=== PATIENT | female | born 1980 | race Caucasian/White ===

== ENCOUNTER 2017-01-14 12:15 | Emergency (ER) | payer SELFPAY ==
[2017-01-14 12:19] VITALS: BP 127/82
[2017-01-14] MEDS ORDERED: cefTRIAXone 1 GM Vial IVPUSH ONE (12:50)
[2017-01-14] MEDS ORDERED: Sodium Chloride 0.9% 1,000 ML IV ONE (12:56)
[2017-01-14] MEDS ORDERED: Iopamidol 612 MG/ML 100 ML Bottle IVPUSH ONE (12:58)
--- NOTE | 2017-01-14 13:02 | EDM.PDOC ---
ED HPI GENERAL MEDICAL PROBLEM - General Chief Complaint: Skin Complaint Stated Complaint: abcess Time Seen by Provider: 01/14/17 12:47 Source of Information: Reports: Patient History Limitations: Reports: No Limitations - History of Present Illness INITIAL COMMENTS - FREE TEXT/NARRATIVE: This patient is a 36 year old female that presents to the ER. Patient reports that for the past 3 days she has had an abscess to the middle/right groin area. She reports that she was seen yesterday, attempted draining, but no success. She reports today the redness around the area has now become a little worse and now has some mild swelling and pain to her right vaginal area. Patient reports she got abx injectino yesterday and was prescribed clindamycin that she just too for the first time just before coming to the ER. Patient denies headache, dizziness, n, v, d, f, cp, soa, abd pain, back pain, urinary/bowel changes, rashes. Duration: Day(s): (3) Location: Reports: Other (groin) Severity: Moderate Improves with: Reports: None Worsens with: Reports: None Associated Symptoms: Denies: Confusion, Chest Pain, Cough, cough w sputum, Diaphoresis, Fever/Chills, Headaches, Loss of Appetite, Malaise, Nausea/Vomiting , Rash, Seizure, Shortness of Breath, Syncope, Weakness Right Groin Pain Score (Numeric/FACES): 6 - Related Data Allergies Allergy/AdvReac Type Severity Reaction Status Date / Time morphine Allergy Vomiting Verified 01/14/17 12:15 Penicillins Allergy Vomiting Verified 01/14/17 12:15 Home Meds: Home Meds LORazepam [LORazepam] 0.5 mg PO BID PRN 12/23/16 [History] Omeprazole 20 mg PO DAILY PRN 12/23/16 [History] Clindamycin HCl 300 mg PO QID 01/14/17 [History] Past Medical History Gastrointestinal History: Reports: Other (See Below) Other Gastrointestinal History: Pt reports all internal organs are reversed from normal Genitourinary History: Reports: Other (See Below) Other Genitourinary History: hx hosp for "kidney infection" - Past Surgical History Dermatological Surgical History: Reports: Other (See Below) Social & Family History - Tobacco Use Smoking Status *Q: Current Every Day Smoker Years of Tobacco use: 5 Packs/Tins Daily: 1 - Recreational Drug Use Recreational Drug Use: No ED ROS GENERAL - Review of Systems Review Of Systems: See Below Constitutional: Reports: No Symptoms HEENT: Reports: No Symptoms Respiratory: Reports: No Symptoms Cardiovascular: Reports: No Symptoms Endocrine: Reports: No Symptoms GI/Abdominal: Reports: No Symptoms : Reports: Other (right vaginal area painful, swelling mild. ) Musculoskeletal: Reports: No Symptoms Skin: Reports: Lumps (large asbcess to right middle grion area. redness, swelling. ) Neurological: Reports: No Symptoms Psychiatric: Reports: No Symptoms Hematologic/Lymphatic: Reports: No Symptoms Immunologic: Reports: No Symptoms ED EXAM, SKIN/RASH Exam: See Below Exam Limited By: No Limitations General Appearance: Alert, WD/WN, No Apparent Distress Eye Exam: Bilateral Eye: Normal Inspection, PERRL Ears: Normal External Exam, Normal Canal, Hearing Grossly Normal, Normal TMs Nose: Normal Inspection, Normal Mucosa, No Blood Throat/Mouth: Normal Inspection, Normal Lips, Normal Teeth, Normal Gums, Normal Oropharynx, Normal Voice, No Airway Compromise Head: Atraumatic, Normocephalic Neck: Normal Inspection, Supple, Non-Tender, Full Range of Motion Respiratory/Chest: No Respiratory Distress, Lungs Clear, Normal Breath Sounds, No Accessory Muscle Use Cardiovascular: Normal Peripheral Pulses, Regular Rate, Rhythm (96 on exam. ), No Edema, No Gallop, No JVD, No Murmur, No Rub Peripheral Pulses: 2+: Radial (L), Radial (R) GI/Abdominal: Normal Bowel Sounds, Soft, Non-Tender, No Organomegaly, No Distention, No Abnormal Bruit, No Mass, Pelvis Stable (Female) Exam: Other (RN PRESENT; Right labia majora, mild swelling. No redness at this site. No heat. No area of fluctulance to drain. No obvious cellulitis at this site. ) Back Exam: Normal Inspection, Full Range of Motion Extremities: Normal Inspection, Normal Range of Motion, Non-Tender, No Pedal Edema, Normal Capillary Refill Neurological: Alert, Oriented, No Motor/Sensory Deficits Psychiatric: Normal Affect, Normal Mood Skin: Warm, Dry, Intact, No Rash, Erythema (large swelling, errythema, area consistent with abscess to the right/middle groin area. No streaking, not fluctulant. Hard to touch. Mildly warm. measures 8cmx 4.5cm.) Course - Vital Signs Last Recorded V/S: Last Vital Signs Temp 98.5 F 01/14/17 12:17 Pulse 109 H 01/14/17 12:17 Resp 16 01/14/17 12:17 BP 127/82 01/14/17 12:17 Pulse Ox 97 01/14/17 12:17 - Orders/Labs/Meds Orders: Active Orders 24 hr Category Date Time Status Abdomen Pelvis w Cont [CT] Stat Exams 01/14/17 12:48 Taken CULTURE BLOOD [BC] Stat Lab 01/14/17 12:55 Received CULTURE BLOOD [BC] Stat Lab 01/14/17 13:00 Received Blood Culture x2 Reflex Set [OM.PC] Stat Oth 01/14/17 12:48 Ordered Labs: Laboratory Tests 01/14/17 01/14/17 01/14/17 Range/Units 12:55 12:55 12:55 WBC 14.7 H (5.0-10.0) 10^3/uL RBC 3.99 L (4.00-5.50) 10^6/uL Hgb 12.2 (12.0-16.0) g/dL Hct 37.5 (37.0-47.0) % MCV 94.0 (82.0-94.0) fL MCH 30.6 (27.0-32.0) pg MCHC 32.5 L (33.0-38.0) g/dL RDW Coeff of [place] 13.5 (11.0-15.0) % Plt Count 334 (150-400) 10^3/uL Neut % (Auto) 73.1 (35-85) % Lymph % (Auto) 12.3 (10-55) % [place] % (Auto) 8.9 (0-16) % Eos % (Auto) 5.5 H (0-5) % Baso % (Auto) 0.2 (0-3) % Neut # (Auto) 10.73 H (1.80-7.00) 10^3/uL Lymph # (Auto) 1.80 (1.00-4.80) 10^3/uL [place] # (Auto) 1.31 H (0.00-0.80) 10^3/uL Eos # (Auto) 0.80 H (0.00-0.45) 10^3/uL Baso # (Auto) 0.03 10^3/uL Sodium 140 (136-145) mEq/L Potassium 3.7 (3.5-5.0) mEq/L Chloride 104 (98-106) mEq/L Carbon Dioxide 28 (21-32) mmol/L BUN 11 (7-18) mg/dL Creatinine 0.8 (0.6-1.0) mg/dL Est Cr Clr Drug Dosing 71.17 mL/min Estimated GFR (MDRD) > 60 (>=60) mL/min Glucose 89 (75-99) mg/dL Lactic Acid 0.6 (0.4-2.0) mmol/L Calcium 8.6 (8.4-10.1) mg/dL Total Bilirubin 0.4 (0.0-1.0) mg/dL AST 10 L (15-37) U/L ALT 17 (12-78) U/L Alkaline Phosphatase 59 (46-116) U/L Total Protein 6.5 (6.4-8.2) g/dL Albumin 3.4 (3.4-5.0) g/dL HCG, Qual 01/14/17 Range/Units 12:55 WBC (5.0-10.0) 10^3/uL RBC (4.00-5.50) 10^6/uL Hgb (12.0-16.0) g/dL Hct (37.0-47.0) % MCV (82.0-94.0) fL MCH (27.0-32.0) pg MCHC (33.0-38.0) g/dL RDW Coeff of [place] (11.0-15.0) % Plt Count (150-400) 10^3/uL Neut % (Auto) (35-85) % Lymph % (Auto) (10-55) % [place] % (Auto) (0-16) % Eos % (Auto) (0-5) % Baso % (Auto) (0-3) % Neut # (Auto) (1.80-7.00) 10^3/uL Lymph # (Auto) (1.00-4.80) 10^3/uL [place] # (Auto) (0.00-0.80) 10^3/uL Eos # (Auto) (0.00-0.45) 10^3/uL Baso # (Auto) 10^3/uL Sodium (136-145) mEq/L Potassium (3.5-5.0) mEq/L Chloride (98-106) mEq/L Carbon Dioxide (21-32) mmol/L BUN (7-18) mg/dL Creatinine (0.6-1.0) mg/dL Est Cr Clr Drug Dosing mL/min Estimated GFR (MDRD) (>=60) mL/min Glucose (75-99) mg/dL Lactic Acid (0.4-2.0) mmol/L Calcium (8.4-10.1) mg/dL Total Bilirubin (0.0-1.0) mg/dL AST (15-37) U/L ALT (12-78) U/L Alkaline Phosphatase (46-116) U/L Total Protein (6.4-8.2) g/dL Albumin (3.4-5.0) g/dL HCG, Qual Negative Meds: Medications Discontinued Medications Generic Name Dose Route Start Last Admin Trade Name Freq PRN Reason Stop Dose Admin Ceftriaxone Sodium 1 gm 01/14/17 12:50 01/14/17 13:17 Rocephin IVPUSH 01/14/17 12:51 1 gm ONETIME ONE Administration Hydromorphone HCl 0.5 mg 01/14/17 13:35 01/14/17 13:41 Dilaudid IVPUSH 01/14/17 13:36 0.5 mg ONETIME ONE Administration Sodium Chloride 1,000 mls @ 1,000 mls/hr 01/14/17 12:56 01/14/17 13:17 Normal Saline IV 01/14/17 13:55 1,000 mls/hr .BOLUS ONE Administration Iopamidol 100 ml 01/14/17 12:58 01/14/17 13:13 Isovue-300 (61%) IVPUSH 01/14/17 12:59 100 ml ONETIME ONE Administration Ondansetron HCl 4 mg 01/14/17 13:35 01/14/17 13:41 Zofran IVPUSH 01/14/17 13:36 4 mg NOW STA Administration - Radiology Interpretation Free Text/Narrative:: CT Abd/Pelvis with contrast: Discussed with radiologist: No fluid collection. Soft tissue skin inflammation of the right lower pelvic region. Fibroid uterus. No other findings. Departure - Departure Time of Disposition: 14:02 Disposition: Home, Self-Care 01 Condition: Good Clinical Impression: Cellulitis Qualifiers: Site of cellulitis: trunk Site of cellulitis of trunk: groin Qualified Code(s) : L03.314 - Cellulitis of groin - Discharge Information Instructions: Cellulitis, Adult Referrals: Obi Bustamante PA-C [Primary Care Provider] - Forms: ED Department Discharge Additional Instructions: Followup with your primary care provider on Monday for recheck Return to the ER for worsening of condition or any emergent concerns such as fever, vomiting. Increase fluids Take your Clindamycin as prescribed. - My Orders Last 24 Hours: My Active Orders 01/14/17 12:48 Abdomen Pelvis w Cont [CT] Stat Blood Culture x2 Reflex Set [OM.PC] Stat 01/14/17 12:55 CULTURE BLOOD [BC] Stat 01/14/17 13:00 CULTURE BLOOD [BC] Stat - Assessment/Plan Last 24 Hours: My Active Orders 01/14/17 12:48 Abdomen Pelvis w Cont [CT] Stat Blood Culture x2 Reflex Set [OM.PC] Stat 01/14/17 12:55 CULTURE BLOOD [BC] Stat 01/14/17 13:00 CULTURE BLOOD [BC] Stat Plan: PLEASE SEE RN NOTE FOR PFSH.
[2017-01-14 13:26] LABS: CHLORIDE,CL 104 mEq/L (98-106); SODIUM,NA 140 mEq/L (136-145)
[2017-01-14] MEDS ORDERED: HYDROmorphone 1 MG/ML Syringe IVPUSH ONE (13:35)
[2017-01-14] MEDS ORDERED: Ondansetron 4 MG/2 ML SDV IVPUSH STA (13:35)
== END 2017-01-14 14:22 | disposition home or self-care (01) ==
LOC: CC.ED 12:15
DX: L03.314 Cellulitis of groin (principal); F17.210 Nicotine dependence, cigarettes, uncomplicated; Z88.5 Allergy status to narcotic agent; Z88.0 Allergy status to penicillin; Z79.899 Other long term (current) drug therapy
CPT/HCPCS: 36415; 74177; 80053; 83605; 84703; 85025; 87040; 96361; 96374; 96375; 99284; J0696; J1170; J2405; J7030; Q9967

== ENCOUNTER 2020-08-14 10:57 | Emergency (ER) | payer SELFPAY ==
[2020-08-14 11:22] VITALS: BP 133/91; PULSE 106
[2020-08-14] MEDS ORDERED: LORazepam 0.5 MG Tab PO ONE (11:48)
[2020-08-14 11:57] LABS: PTT,PARTIAL THROMBOPLSTIN TIME 22.8 SEC (23.2-32.3)
[2020-08-14 12:01] LABS: CHLORIDE,CL 103 mEq/L (98-106); SODIUM,NA 139 mEq/L (136-145)
--- NOTE | 2020-08-14 13:17 | EDM.PDOC ---
ED HPI GENERAL MEDICAL PROBLEM - General Chief Complaint: Chest Pain Stated Complaint: CP Time Seen by Provider: 08/14/20 11:30 Source of Information: Reports: Patient History Limitations: Reports: No Limitations - History of Present Illness INITIAL COMMENTS - FREE TEXT/NARRATIVE: Maile is a 40 yo female who presents to the ED with c/o chest pain and panic attack. She reports this started during an argument with her . She reports left sided chest pain radiating to her arm. Describes the pain as a tight achiness. Reports she did take one of her uncle's nitro and pain improved some. She reports she was feeling well prior to this argument. Is tearful and very worked up. She does not wish to elaborate on what the fight with her was about. REports after she "got out of her face" she is feeling better. She denies any shortness of breath, N/V/D. REports no significant PMH other than anxiety. Has used lorazepam in the past but has not had it refilled in ~2 years. Onset: Today, Sudden Duration: Improving Location: Reports: Chest Quality: Reports: Ache Associated Symptoms: Reports: Chest Pain, Other (anxiety/panic attack ). Denies: Confusion, Cough, cough w sputum, Diaphoresis, Fever/Chills, Headaches, Loss of Appetite, Malaise, Nausea/Vomiting, Rash, Seizure, Shortness of Breath, Syncope, Weakness Treatments [employer]: Reports: Nitroglycerin Right Chest Pain Score (Numeric/FACES): 4 - Related Data Allergies Allergy/AdvReac Type Severity Reaction Status Date / Time morphine Allergy Vomiting Verified 08/14/20 11:22 Penicillins Allergy Vomiting Verified 08/14/20 11:22 Home Meds: Home Meds LORazepam 0.5 mg PO BID PRN 12/23/16 [History] Omeprazole 20 mg PO DAILY PRN 12/23/16 [History] LORazepam [Lorazepam] 0.5 mg PO Q12H PRN #15 tablet 08/14/20 [Rx] Past Medical History Gastrointestinal History: Reports: GERD, Other (See Below) Other Gastrointestinal History: Pt reports all internal organs are reversed from normal Genitourinary History: Reports: Other (See Below) Other Genitourinary History: hx hosp for "kidney infection" Psychiatric History: Reports: Anxiety - Past Surgical History HEENT Surgical History: Reports: Eye Surgery Other HEENT Surgeries/Procedures: L)eye tumor removed Dermatological Surgical History: Reports: Other (See Below) Social & Family History - Family History Family Medical History: No Pertinent Family History - Tobacco Use Tobacco Use Status *Q: Current Every Day Tobacco User Years of Tobacco use: 8 Packs/Tins Daily: 0.5 - Caffeine Use Caffeine Use: Reports: Soda - Recreational Drug Use Recreational Drug Type: Reports: Marijuana/Hashish Recreational Drug Use Frequency: Socially ED ROS GENERAL - Review of Systems Review Of Systems: Comprehensive ROS is negative, except as noted in HPI. ED EXAM, GENERAL - Physical Exam Exam: See Below Exam Limited By: No Limitations General Appearance: Alert, WD/WN, Anxious, Mild Distress Eye Exam: Bilateral Eye: EOMI, PERRL Throat/Mouth: Normal Inspection, Normal Lips, Normal Teeth, Normal Gums, Normal Oropharynx, Normal Voice, No Airway Compromise Head: Atraumatic, Normocephalic Neck: Normal Inspection, Supple, Non-Tender, Full Range of Motion Respiratory/Chest: No Respiratory Distress, Lungs Clear, Normal Breath Sounds, No Accessory Muscle Use, Chest Non-Tender Cardiovascular: Normal Peripheral Pulses, Regular Rate, Rhythm, No Edema, No Gallop, No JVD, No Murmur, No Rub GI/Abdominal: Normal Bowel Sounds, Soft, Non-Tender, No Organomegaly, No Distention, No Abnormal Bruit, No Mass Back Exam: Normal Inspection, Full Range of Motion, NT Extremities: Normal Inspection, Normal Range of Motion, Non-Tender, Normal Capillary Refill, No Pedal Edema Neurological: Alert, Oriented, CN II-XII Intact, Normal Cognition, Normal Gait, Normal Reflexes, No Motor/Sensory Deficits Psychiatric: Anxious, Tearful Skin Exam: Warm, Dry, Intact, Normal Color, No Rash Course - Vital Signs Last Recorded V/S: Last Vital Signs Temp 97.7 F 08/14/20 11:18 Pulse 106 H 08/14/20 11:18 Resp 18 08/14/20 11:18 BP 133/91 H 08/14/20 11:18 Pulse Ox 97 08/14/20 11:18 - Orders/Labs/Meds Orders: Active Orders 24 hr Category Date Time Status Chest 2V [CR] Routine Exams 08/14/20 Taken Labs: Laboratory Tests 08/14/20 08/14/20 08/14/20 Range/Units 11:38 11:38 11:38 WBC 7.4 (5.0-10.0) 10^3/uL RBC 5.16 (4.00-5.50) 10^6/uL Hgb 15.6 (12.0-16.0) g/dL Hct 45.6 (37.0-47.0) % MCV 88.4 (82.0-94.0) fL MCH 30.2 (27.0-32.0) pg MCHC 34.2 (33.0-38.0) g/dL RDW Coeff of [place] 13.5 (11.0-15.0) % Plt Count 401 H (150-400) 10^3/uL Neut % (Auto) 55.9 (35-85) % Lymph % (Auto) 28.2 (10-55) % [place] % (Auto) 10.8 (0-16) % Eos % (Auto) 4.7 (0-5) % Baso % (Auto) 0.4 (0-3) % Neut # (Auto) 4.16 (1.80-7.00) 10^3/uL Lymph # (Auto) 2.10 (1.00-4.80) 10^3/uL [place] # (Auto) 0.80 (0.00-0.80) 10^3/uL Eos # (Auto) 0.35 (0.00-0.45) 10^3/uL Baso # (Auto) 0.03 10^3/uL PT 10.4 (9.7-12.3) SEC INR 1.03 (0.92-1.18) APTT 22.8 L (23.2-32.3) SEC Sodium 139 (136-145) mEq/L Potassium 3.7 (3.5-5.0) mEq/L Chloride 103 (98-106) mEq/L Carbon Dioxide 27 (21-32) mmol/L BUN 19 H D (7-18) mg/dL Creatinine 1.1 H (0.6-1.0) mg/dL Est Cr Clr Drug Dosing 49.81 mL/min Estimated GFR (MDRD) 56 L (>=60) mL/min Glucose 84 (75-99) mg/dL Calcium 9.2 (8.4-10.1) mg/dL Total Bilirubin 0.6 (0.0-1.0) mg/dL AST 11 L (15-37) U/L ALT 19 (12-78) U/L Alkaline Phosphatase 53 (46-116) U/L Lactate Dehydrogenase 151 (100-190) U/L Creatine Kinase 64 (21-215) U/L Troponin I < 0.017 (0.00-0.06) ng/mL Total Protein 7.3 (6.4-8.2) g/dL Albumin 3.9 (3.4-5.0) g/dL Lipase 86 (73-393) U/L Meds: Medications Discontinued Medications Generic Name Dose Route Start Last Admin Trade Name Freq PRN Reason Stop Dose Admin Lorazepam 1 mg 08/14/20 11:48 08/14/20 11:53 Ativan PO 08/14/20 11:49 1 mg ONETIME ONE Administration Departure - Departure Time of Disposition: 13:09 Disposition: Home, Self-Care 01 Condition: Good Clinical Impression: Panic attack Prescriptions: LORazepam [Lorazepam] 0.5 mg PO Q12H PRN #15 tablet PRN Reason: Anxiety Instructions: Generalized Anxiety Disorder, Adult, Panic Attack, [id number] Referrals: Obi Bustamante PA-C [Primary Care Provider] - Forms: ED Department Discharge Additional Instructions: - Refill of lorazepam to use as needed for anxiety/panic attack - Recommend follow up with PCP if anxiety symptoms persist or worsen Sepsis Event Note (ED) - Evaluation Sepsis Screening Result: No Definite Risk - Focused Exam Vital Signs: Vital Signs Temp Pulse Resp BP Pulse Ox 08/14/20 11:18 97.7 F 106 H 18 133/91 H 97 - Problem List & Annotations (1) Panic attack SNOMED Code(s): 177963058 Code(s): F41.0 - PANIC DISORDER [EPISODIC PAROXYSMAL ANXIETY] Status: Acute - My Orders Last 24 Hours: My Active Orders 08/14/20 Chest 2V [CR] Routine - Assessment/Plan Last 24 Hours: My Active Orders 08/14/20 Chest 2V [CR] Routine Assessment:: Panic Attack Plan: Patient presents with c/o chest pain and panic attack. Labs all stable. EKG without abnormalities. Was given 1 mg Lorazepam in ED and monitored. Patient reports improvement in her chest pain. She is calmed down and feeling much better. She will be discharged home with a refill of her lorazepam. SHe is advised to follow up with her PCP.
== END 2020-08-14 13:25 | disposition home or self-care (01) ==
LOC: CC.ED 10:57
DX: F41.0 Panic disorder [episodic paroxysmal anxiety] (principal); K21.9 Gastro-esophageal reflux disease without esophagitis; Z88.5 Allergy status to narcotic agent; Z88.0 Allergy status to penicillin; Z79.899 Other long term (current) drug therapy; Z72.0 Tobacco use
CPT/HCPCS: 36415; 71046; 80053; 82550; 83615; 83690; 84484; 85025; 85610; 85730; 93005; 99284; A9270